=== PATIENT | female | born 1955 | race Two or more races ===

== ENCOUNTER 2021-11-12 19:13 | Emergency (ER) | payer MEDICARE, BC, OTHER ==
[~2021-11-12] VITALS: Ht 170.2 cm; Wt 59.0 kg
[2021-11-12] MEDS ORDERED: IBUP-1953 PO (21:28)
[2021-11-12 21:44] VITALS: BP 128/86
== END 2021-11-12 21:45 | disposition home or self-care (01) ==
LOC: ER 19:18
DX: M25.571 Pain in right ankle and joints of right foot (principal); I10 Essential (primary) hypertension; J45.909 Unspecified asthma, uncomplicated; Z79.1 Long term (current) use of non-steroidal anti-inflammatories (NSAID)
CPT/HCPCS: 73610-TC; 93971-TC